=== PATIENT | female | born 1975 | race American Indian/Alaskan Native ===

== ENCOUNTER 2018-01-07 10:05 | Emergency (ER) | payer SELFPAY ==
[2018-01-07 11:53] LABS: Basophils % (Auto) 0.3 % (0.0-1.8); Eosinophils % (Auto) 0.6 % (0.0-4.3); Hematocrit 36.6 % (30.3-42.9); Hemoglobin 12.3 gm/dl (10.1-14.3); Lymphocytes # (Auto) 1.4 K/mm3 (1.2-5.4); Lymphocytes % (Auto) 21.5 % (13.4-35.0); Mean Corpuscular HGB Conc 34 % (30-34); Mean Corpuscular Hemoglobin 32 pg (28-32); Mean Corpuscular Volume 95 fl (79-97); Monocytes # (Auto) 0.7 K/mm3 (0.0-0.8); Monocytes % (Auto) 10.5 % (0.0-7.3); Platelet Count 232 K/mm3 (140-440); Red Blood Count 3.86 M/mm3 (3.65-5.03); Red Cell Distribution Width 15.6 % (13.2-15.2)
--- NOTE | 2018-01-07 15:11 | Ultrasound Report ---
OB ultrasound: Positive test presenting with right lower quadrant pain. Endovaginal and transabdominal images were obtained. The overall quality of the exam is compromised seemingly by bowel gas. The uterus measures approximately 8 x 13.4 x 10 cm. It is diffusely inhomogeneous. There are probable multiple fibroids with the largest being in the lower uterine segment measuring 7.5 cm. The endometrium is thickened measuring 26 mm. No intrauterine fluid or sac identified. The right ovary is identified endovaginally measuring approximately 2.9 cm. The left ovary is not identified by either approach. Just lateral to the right seen only in the transabdominal imaging is a doughnut-appearing structure measuring approximately 9 mm in size. There is blood flow leading to this structure. This corresponds in location to the patient's area of discomfort. No free fluid identified. Impressions: 1. Suspicious finding for right ectopic . 2. Multiple uterine fibroids.
--- NOTE | 2018-01-07 16:30 | Emergency Department Report ---
HPI - General Chief Complaint: Vaginal Bleeding Time Seen by Provider: 01/07/18 16:18 - HPI HPI: Room 18 The patient is a 42-year-old female presenting with chief complaint of right- sided abdominal pain. The patient is with an LMP of 11/29/2017. The patient states she was in her usual state of health until this morning at 08:00 when she developed right lower quadrant/pelvic pain that was cramping and constant in nature. Patient states she noticed some vaginal spotting but this has since resolved. The patient currently gives her pain a score of 4/10. The patient states she has not seen her DATA TECHNICAL LEAD for this yet Location: Right pelvis Duration: Since since 08:00 Quality: Cramping Severity: 4/10 Modifying factors: [see above] Context: [see above] Mode of transportation: Unknown. There is a visitor at the bedside ED Past Medical Hx - Past Medical History Previous Medical History?: Yes - Surgical History Past Surgical History?: Yes Additional Surgical History: x 3,. Bilateral tubal ligation, reversal of bilateral tubal ligation 2013 - Family History Family history: no significant - Social History Smoking Status: Never Smoker Substance Use Type: Non Opiate Pain ED Review of Systems ROS: Stated complaint: ABD PAIN 5WKS PREG Other details as noted in HPI Genitourinary: abnormal menses Physical Exam - Physical Exam Vital Signs: Vital Signs 01/07/18 11:09 Temperature 97.8 F Pulse Rate 82 Respiratory 20 Rate Blood Pressure 108/75 O2 Sat by Pulse 100 Oximetry Physical Exam: GENERAL: The patient is well-developed well-nourished female lying on stretcher not appear to be in acute distress. [] HEENT: Normocephalic. Atraumatic. Extraocular motions are intact. Patient has moist mucous membranes. NECK: Supple. Trachea midline CHEST/LUNGS: Clear to auscultation. There is no respiratory distress noted. HEART/CARDIOVASCULAR: Regular. There is no tachycardia. There is no gallop rub or murmur. ABDOMEN: Abdomen is soft, with mild discomfort to palpation in the right lower quadrant. Patient has normal bowel sounds. There is no abdominal distention. SKIN: There is no rash. There is no edema. There is no diaphoresis. NEURO: The patient is awake, alert, and oriented. The patient is cooperative. The patient has normal speech MUSCULOSKELETAL:There is no evidence of acute injury. ED Course Vital Signs 01/07/18 11:09 Temperature 97.8 F Pulse Rate 82 Respiratory 20 Rate Blood Pressure 108/75 O2 Sat by Pulse 100 Oximetry - Consultations Consultation #1: 01/07/18 16:30 DATA TECHNICAL LEAD paged 01/07/18 16:[address] Bernabe. Plan on taking patient to OR ED Medical Decision Making - Lab Data Result diagrams: 01/07/18 11:21 Laboratory Tests 01/07/18 01/07/18 01/07/18 11:21 11:21 11:21 WBC 6.4 RBC 3.86 Hgb 12.3 Hct 36.6 MCV 95 MCH 32 MCHC 34 RDW 15.6 H Plt Count 232 Lymph % (Auto) 21.5 [place] % (Auto) 10.5 H Eos % (Auto) 0.6 Baso % (Auto) 0.3 Lymph # 1.4 [place] # 0.7 Eos # 0.0 Baso # 0.0 Seg Neutrophils % 67.1 Seg Neutrophils # 4.3 HCG, Quant 4714 H Blood Type O POSITIVE Antibody Screen Negative - Radiology Data Radiology results: report reviewed (pelvic ultrasound), image reviewed (pelvic ultrasound) OB ultrasound: Positive test presenting with right lower quadrant pain. Endovaginal and transabdominal images were obtained. The overall quality of the exam is compromised seemingly by bowel gas. The uterus measures approximately 8 x 13.4 x 10 cm. It is diffusely inhomogeneous. There are probable multiple fibroids with the largest being in the lower uterine segment measuring 7.5 cm. The endometrium is thickened measuring 26 mm. No intrauterine fluid or sac identified. The right ovary is identified endovaginally measuring approximately 2.9 cm. The left ovary is not identified by either approach. Just lateral to the right seen only in the transabdominal imaging is a doughnut-appearing structure measuring approximately 9 mm in size. There is blood flow leading to this structure. This corresponds in location to the patient's area of discomfort. No free fluid identified. Impressions: 1. Suspicious finding for right ectopic . 2. Multiple uterine fibroids. Transcribed By: KIMBERLEY Dictated By: KRYSTEN ROTHMAN MD Electronically Authenticated By: KRYSTEN ROTHMAN MD Signed Date/Time: 01/07/18 1452 DD/ 1442 TD/TT: 01/07/18 1452 - Differential Diagnosis ectopic , missed Critical care attestation.: If time is entered above; I have spent that time in minutes in the direct care of this critically ill patient, excluding procedure time. ED Disposition Clinical Impression: Ectopic , Acute abdominal pain Disposition: OP ADMIT IP TO THIS HOSP Is pt being admited?: Yes Does the pt Need Aspirin: No Condition: Fair Time of Disposition: 16:39
[2018-01-07] MEDS ORDERED: ZOFRAN IV ONE (16:36)
[2018-01-07] MEDS ORDERED: SUBLIMAZE IV ONE (16:36)
[2018-01-07 16:46] LABS: Bilirubin,Urine NEG (Negative); Blood,Urine LG (Negative); Color,Urine Yellow (Yellow); Mucus,Urine FEW /HPF; Nitrite,Urine NEG (Negative); Protein,Urine <15 mg/dL mg/dL (Negative); Urobilinogen,Urine < 2.0 mg/dL (<2.0); WBC,Urine < 1.0 /HPF (0.0-6.0)
--- NOTE | 2018-01-07 17:07 | Consultation ---
History of Present Illness Consult date: 01/07/18 Reason for consult: other (ectopic ) History of present illness: Patient is a 42 year old female who presented with rlq pain and positive pregancy test. She passed some clots earlier and is no longer in pain, however there is a fluid ring with blood flow to it around the right adnexa and the uterus is empty. Patient has history of tubal ligation and tubal reversal. Past History Past Medical History: no pertinent history Past Surgical History: SHIRT IRONER/uterine surgery Social history: Medications and Allergies Allergies Allergy/AdvReac Type Severity Reaction Status Date / Time No Known Allergies Allergy Unverified 01/07/18 11:09 Home Medications Medication Instructions Recorded Confirmed Last Taken Type No Known Home Medications [No 01/07/18 01/07/18 Unknown History Reported Home Medications] Review of Systems All systems: negative Genitourinary: pelvic pain - Vital Signs Vital signs: Vital Signs Temp Pulse Resp BP Pulse Ox 97.8 F 82 20 108/75 100 01/07/18 11:09 01/07/18 11:09 01/07/18 11:09 01/07/18 11:09 01/07/18 11:09 Temp Pulse Resp BP Pulse Ox 97.8 F 79 16 112/70 100 01/07/18 11:09 01/07/18 16:31 01/07/18 16:31 01/07/18 16:31 01/07/18 16:31 - Physical Exam Breasts: Positive: deferred Cardiovascular: Regular rate, Normal S1, Normal S2 Lungs: Positive: Clear to auscultation, Normal air movement Abdomen: Positive: normal appearance, soft, normal bowel sounds. Negative: distention, tenderness Genitourinary (Female): Positive: normal external genitalia, normal perenium Vulva: both: normal Vagina: Positive: normal moisture. Negative: discharge Cervix: Negative: lesion, discharge Uterus: Positive: normal size, normal contour Adnexa: both: normal Anus/Rectum: Positive: normal perianal skin, heme negative. Negative: rectal mass, hemorrhoids Extremities: Deep Tendon Reflex Grade: Normal +2 Results Result Diagrams: 01/07/18 11:21 Abnormal lab results 01/07/18 01/07/18 Range/Units 11:21 11:21 RDW 15.6 H (13.2-15.2) % [place] % (Auto) 10.5 H (0.0-7.3) % HCG, Quant 4714 H (0-4) mIU/mL All other labs normal. Assessment and Plan 42 year old female here with likely ectopic . Patient given options of surgery vs. methotrexate therapy. Patient opts for methotrexate therapy.
[2018-01-07] MEDS ORDERED: METHOTREXATE IM ONE (17:13)
[2018-01-07 17:24] LABS: BUN/Creatinine Ratio 10; Blood Urea Nitrogen 6 mg/dL (7-17); Calcium 8.8 mg/dL (8.4-10.2); Hemolysis Index 10
[2018-01-07 17:26] LABS: INR 0.93 (0.87-1.13)
[2018-01-07 17:27] LABS: Partial Thromboplastin Time 28.3 Sec. (24.2-36.6)
[2018-01-07 20:01] VITALS: BP 115/78
== END 2018-01-07 20:02 | disposition home or self-care (01) ==
LOC: ED 10:05
DX: O00.80 Other ectopic pregnancy without intrauterine pregnancy (principal); Z98.51 Tubal ligation status
CPT/HCPCS: 36415; 76801; 76817; 80048; 81001; 84702; 85025; 85610; 85730; 86850; 86900; 86901; 96372; 96374; 96375; 99284; J2405; J3010; J9260

== ENCOUNTER 2018-11-12 12:15 | Outpatient (CLI) | payer BC, OTHER | END 2018-11-12 12:16 | disposition home or self-care (01) | LOC: LABHHL 12:15 | PROVIDERS: ATTEND Surgery | DX: D24.2 Benign neoplasm of left breast (principal) | CPT/HCPCS: 88305; 88341; 88342 ==